=== PATIENT | male | born 1955 | race Caucasian/White ===

== ENCOUNTER 2019-04-23 19:25 | Inpatient (IN) ==
--- NOTE | 2019-04-23 20:09 | EKG Report ---
Test Performed on : 04/23/2019 7:52:47 PM Test Reason : weakness Blood Pressure : / mmHG Vent. Rate : 092 BPM Atrial Rate : 092 BPM P-R Int : 152 ms QRS Dur : 152 ms QT Int : 400 ms P-R-T Axes : 025 -03 -05 degrees QTc Int : 494 ms Normal sinus rhythm. Right bundle branch block Moderate voltage criteria for LVH, may be normal variant Abnormal ECG No previous ECGs available Unconfirmed Result
[2019-04-23] MEDS ORDERED: NS 1,000 ML IV ONE (20:28)
--- NOTE | 2019-04-23 21:00 | Diag Imaging Result Doc PS360 ---
EXAM: CHEST-PORTABLE 04/23/2019 HISTORY: cough TECHNIQUE: AP portable upright at 2043 COMMENT: There are patchy coarse opacities bilaterally particularly on the left. The heart size is not enlarged. There are no previous studies. IMPRESSION: Bronchopneumonia. Electronically signed by Gordy Mcallister 04/23/2019 8:58 PM
[2019-04-23 21:08] LABS: BASO# 0.01 X1000 (0.0-0.2); BASO% 0.1 % (0.0-0.8); EOS# 0.08 X1000 (0.0-0.7); EOS% 1.1 % (0.0-10.0); HEMATOCRIT 42.2 % (42.0-52.0); HEMOGLOBIN 14.3 g/dL (14.0-18.0); IMM GRAN# 0.03 X1000 (0.0-0.04); IMM GRAN% 0.4 % (0.0-0.5); LYMPH# 0.71 X1000 (1.2-3.4); LYMPH% 9.6 % (20.5-51.1); MCH 29.4 PG (27-31); MCHC 33.9 g/dL (33-37); MCV 86.8 FL (81-99); MONO# 0.55 X1000 (0.11-0.59); MONO% 7.5 % (1.7-9.3); MPV 10.6 FL (7.4-10.4); NEUT# 5.99 X1000 (1.4-6.5); NEUT% 81.3 % (42.2-75.2); PLT 275 X1000 (130-400); RBC 4.86 XMIL (4.7-6.1); RDW 13.5 % (11.5-14.5); WBC 7.37 X1000 (4.8-10.8)
--- NOTE | 2019-04-23 21:20 | Diag Imaging Result Doc PS360 ---
EXAM: CT HEAD W/O CONTRAST 04/23/2019 HISTORY: ataxia TECHNIQUE: This exam was performed using automated exposure control, adjustment of mA or kV according to patient size, and/or use of iterative reconstruction technique. COMMENT: There are lacunae in the inferior basal ganglia bilaterally. There is no evidence of mass effect, bleed, or abnormal extra-axial fluid collection. There is a small lacune in the periventricular white matter of the right posterior frontal lobe. The calvarium is intact. The visualized paranasal sinuses are clear. There is debris in the left external auditory canal. There is hypoplasia of the mastoid air cells bilaterally. IMPRESSION: Chronic ischemic microvascular changes. No evidence of acute intracranial disease. Electronically signed by Gordy Mcallister 04/23/2019 9:18 PM
[2019-04-23 22:03] LABS: AGAP 15; ALKALINE PHOSPHATASE 80 U/L (32-122); BUN 26 mg/dL (8-22); CALCIUM 8.5 mg/dL (8.8-10.2); CHLORIDE 97 mmol/L (98-107); CK PROFILE 159 U/L (24-204); COSMO 275; CREATININE 1.2 mg/dL (0.7-1.2); ESTIMATED GFR > 60; GLUCOSE 141 mg/dL (70-104); GOT 135 U/L (10-34); GPT 157 U/L (10-44); POTASSIUM 4.5 mmol/L (3.5-5.1); SODIUM 134 mmol/L (136-145); TCO2 22 mmol/L (25-35); TOTAL BILIRUBIN 1.21 mg/dL (0.20-1.00)
[2019-04-23] MEDS ORDERED: LEVAQUIN 750 MG/D5W 750 MG/150 ML IVPB IV ONE (22:19)
--- NOTE | 2019-04-23 23:31 | PROVIDER DOCUMENTATION ---
This chart was entered by Darlin Nguyen Scribe, acting as scribe for Isaak Wang MD. HPI-General Adult - General Chief Complaint: General Adult Stated Complaint: GENERAL EIVI-VEXVMOFA-PTS EATING/DRINKING Time Seen by Provider: 04/23/19 20:06 Source: patient, family Allergies/Adverse Reactions: Patient Allergies Allergy/AdvReac Type Severity Reaction Status Date / Time No Known Allergies Allergy Verified 04/23/19 23:32 Home Medications: Home Medication List Medication Instructions Recorded Confirmed Last Taken Type Permethrin 5% Cream [Elimite 5% 60 gm TOP ONCE #4 tube 05/09/14 Unknown Rx Cream] ATORVAstatin [Lipitor] 40 mg PO QHS 04/23/19 04/23/19 Unknown History Aspirin [Aspir-Low] 81 mg PO DAILY 04/23/19 04/23/19 Unknown History Clopidogrel Bisulfate [Clopidogrel] 75 mg PO DAILY 04/23/19 04/23/19 Unknown History Levofloxacin [Levaquin] 750 mg PO DAILY #6 tab 04/23/19 Unknown Rx Lisinopril 10 mg PO DAILY 04/23/19 04/23/19 Unknown History Metoprolol Tartrate 12.5 mg PO DAILY 04/23/19 04/23/19 Unknown History Nitroglycerin Sl [Nitroglycerin] 0.4 mg SUBLINGUAL PRN PRN 04/23/19 04/23/19 Unknown History - History of Present Illness -Gen Adult Nature of Presenting Problems: Pt is a 64 yom who presents to the ED with a cc of generalized weakness/staggering and cough. Pt family states that he pt has not been following daily routine. reports fatigue loss of appetite and r arm pain and decrease in motor skills. reports headache but denies blurry vision or tingling in extremities. denies any other complaints. Location of Pain/Injury: reports: chest (weakness, staggering), generalized Pain Radiation: reports: no radiation Quality of Pain: reports: dull Severity: reports: mild Onset/Duration: reports: unsure (few weeks?) Timing: reports: still present Context/Activities at Onset: reports: none Modifying Factors: improves with: coughing (worsens), movement (worsens) Associated Symptoms: reports: chest pain (tenderness), cough, fatigue, loss of appetite, weakness Similar Symptoms Previously?: No Recently seen or treated by another doctor?: No Review of Systems - Adult - REVIEW OF SYSTEMS - ADULT Constitutional: reports: see HPI, fatique Eyes: reports: no symptoms reported Ears, Nose, Mouth & Throat: reports: no symptoms reported Cardiovascular: reports: see HPI, chest pain (tenderness) Respiratory: reports: see HPI, cough Gastrointestinal: reports: see HPI, poor appetite Genitourinary: reports: no symptoms reported Musculoskeletal: reports: see HPI, back pain (R arm pain) Integumentary: reports: no symptoms reported Neurological: reports: see HPI, headache/migraines, other (weakness, staggering) Psychiatric: reports: no symptoms reported Endocrine: reports: no symptoms reported Hematologic/Lymphatic: reports: no symptoms reported Allergic/Immunologic: reports: no symptoms reported All Other Systems: Reviewed and Negative Past History - Adult - PAST MEDICAL HISTORY-ADULT Review of Records: reports: Old Records Reviewed, Nursing Assessment Review, Medications Reviewed, Social history reviewed & non-contributory. Major Childhood Illnesses: reports: denies history Cardiovascular: reports: [place], other (cardiac stents) Respiratory: reports: denies history Gastrointestinal: reports: denies history Obstetrical/Gynecological: reports: denies history Genitourinary: reports: denies history Musculoskeletal: reports: denies history Neurological: reports: denies history Endocrine/Immune: reports: denies history Other Conditions: reports: denies history - PRIOR SURGERIES/PROCEDURES Surgical/Procedure History: reports: none Physical Exam-General - PHYSICAL EXAM-ADULT Initial Vital Signs Reviewed: Yes - CONSTITUTIONAL General Appearance: alert, no apparent distress - EYES Eyes: pink conjunctivae - HEAD, EARS, NOSE, MOUTH & THROAT HENMT: normocephalic/atraumatic. negative: moist mucous membranes (dry) - NECK Neck: non-tender, full range of motion, normal inspection - RESPIRATORY Respiratory: lungs clear, normal breath sounds. negative: chest non-tender - CARDIOVASCULAR Cardiovascular: normal peripheral pulses, regular rate, rhythm - GASTROINTESTINAL (ABDOMEN) Abdominal Exam: normal bowel sounds, non tender, soft - MUSCULOSKELETAL Back Exam: normal inspection Extremity: normal range of motion, non-tender, normal inspection - SKIN Integumentary: normal color, normal turgor, warm/dry - NEUROLOGIC Neurologic: grossly normal - PSYCHIATRIC Psych/Mental Status: normal mood/affect, normal thought content, normal thought process, oriented x 3 Progress - PLAN OF CARE/RESULTS Progress/Plan/Lab Results: Vital Signs - 8 hr 04/23/19 19:41 04/23/19 21:03 Temperature 97.6 F Pulse Rate 102 H Pulse Rate [Sitting] 100 H Pulse Rate [Standing] 109 H Pulse Rate [Supine] 86 Respiratory Rate 18 Blood Pressure 82/54 Blood Pressure [Sitting] 114/68 Blood Pressure [Standing] 88/56 Blood Pressure [Supine] 104/61 O2 Sat by Pulse Oximetry 83 L Laboratory Results - last 24 hr 04/23/19 04/23/19 04/23/19 20:14 20:55 20:55 WBC 7.37 RBC 4.86 Hgb 14.3 Hct 42.2 MCV 86.8 MCH 29.4 MCHC 33.9 RDW Std Deviation 13.5 Plt Count 275 MPV 10.6 H Immature Gran % (Auto) 0.4 Neut % (Auto) 81.3 H Lymph % (Auto) 9.6 L [place] % (Auto) 7.5 Eos % (Auto) 1.1 Baso % (Auto) 0.1 Immature Gran # (Auto) 0.03 Neut # (Auto) 5.99 Lymph # (Auto) 0.71 L [place] # (Auto) 0.55 Eos # (Auto) 0.08 Baso # (Auto) 0.01 POC Glucose 127 H Plasma Lactate 1.5 Orders Category Date Time Status ED: Orthostatic Vital Signs (E DIRECTED Care 04/23/19 20:33 Active CHEST-PORTABLE [RAD] Stat Exams 04/23/19 20:[address] HEAD W/O CONTRAST [CT] Stat Exams 04/23/19 20:33 Completed CBC WITH DIFF [HEME] Stat Lab 04/23/19 20:55 Completed CK PROFILE [SP CHEM] Stat Lab 04/23/19 20:55 Received COMPREHENSIVE METABOLIC PANEL [CHEM] Stat Lab 04/23/19 20:55 Received LACTATE, PLASMA [CHEM] Stat Lab 04/23/19 20:55 Completed PRO B-NATRIURETIC PEPTIDE Stat Lab 04/23/19 20:55 Received TROPONIN T HIGH SENSITIVITY Stat Lab 04/23/19 20:55 Received UA NIMS W/REFLEX CULT [URINALYSIS] Stat Lab 04/23/19 20:33 Uncollected 0.9% Sodium Chloride Inj [Ns] 1,000 ml Med 04/23/19 20:28 Discontinued IV 999 mls/hr EKG [EKG] Stat Ther 04/23/19 19:47 Draft Result Diagrams: 04/23/19 20:55 04/23/19 20:55 - REASSESSMENT Reassessment #1 Time Reassessed: 22:15 Status: other (stable. impression d/w pt. will d/c home after IV abxs.) Reassessment #2 Time Reassessed: 00:13 Status: worsening (Pt dropping O2 are dropping to 84 with RR of 34, will start on O2 2L and continue IVF's. Orthostatic BP improved.) - EKG 1 Time of EKG reading by physician:: 19:52 EKG Read and Signed by:: Isaak Wang EKG Interpretation (*Must complete 3 of following elements*): Abnormal Rate: 92 Rhythm: NSR [place]: normal QRS: LVH (moderate voltage criteria for LVH) UT Interval: normal ST Wave: normal Prior EKG Comparison: no prior EKG - XRAY 1 XRAY: Bilateral XRAY Study: Chest Impression: Abnormal, See EMR Report ( EXAM: CHEST-PORTABLE 04/23/2019 HISTORY: cough TECHNIQUE: AP portable upright at 2043 COMMENT: There are patchy coarse opacities bilaterally particularly on the left. The heart size is not enlarged. There are no previous studies. IMPRESSION: Bronchopneumonia. Electronically signed by Gordy Mcallister 04/23/2019 8:58 PM 04/23/192057 Interpreting Physician: Gordy Mcallister MD Dictated Date/Time: 04/23/192056 cc: Isaak Wang MD; None,PCP) - CT/MRI 1 CT Study: Head Impression: Normal, See EMR Report (EXAM: CT HEAD W/O CONTRAST 04/23/2019 HISTORY: ataxia TECHNIQUE: This exam was performed using automated exposure control, adjustment of mA or kV according to patient size, and/or use of iterative reconstruction technique. COMMENT: There are lacunae in the inferior basal ganglia bilaterally. There is no evidence of mass effect, bleed, or abnormal extra-axial fluid collection. There is a small lacune in the periventricular white matter of the right posterior frontal lobe. The calvarium is intact. The visualized paranasal sinuses are clear. There is debris in the left external auditory canal. There is hypoplasia of the mastoid air cells bilaterally. IMPRESSION: Chronic ischemic microvascular changes. No evidence of acute intracranial disease. Electronically signed by Gordy Mcallister 04/23/2019 9:18 PM 04/23/192117 Interpreting Physician: Gordy Mcallister MD Dictated Date/Time: 04/23/192115 cc: Isaak Wang MD; None,PCP) Departure - Departure Date of Disposition Decision: 04/23/19 Time of Disposition Decision: 22:28 DIAGNOSIS: Bronchopneumonia Disposition: ADMITTED INPATIENT 09 Certified Medical Emergency: Emergent Condition: Stable Additional Instructions: ED Follow Up Instructions: Please ensure hydration. Please follow with your doctor in 2-3 days or earlier if needed. You have been treated by a care provider in the Emergency Department. These instructions are being provided to you so you can have an understanding of how to care for yourself upon discharge. Upon discharge from the Emergency Department, you are responsible for making arrangements for follow-up care by a physician of your choice. Take all prescribed medications as directed. Return to the Emergency Department immediately for any new or worsening symptoms. You may call the Physician Referral phone number at [phone] to obtain a list of Physicians who are taking new patients. Prescriptions: Levofloxacin [Levaquin] 750 mg PO DAILY #6 tab Referrals and Follow-Ups: None,PCP [Primary Care Provider] - - Critical Care Note This patient required my direct & personal management of CC.: No Attestation - Physician/ [place] Attestation Patient care was provided by Advanced Practice Provider:: No The physician spent face to face time with patient:: Yes Advanced Practice Provider documentation review:: Supervising physician onsite and consulted in the evaluation and care of this patient. The physician did have a face to face encounter with the patient. This chart was documented by the indicated scribe, (Darlin Nguyen Scribe) and accurately reflects the services I performed and decisions made by me, Isaak Wang MD, as attested by the provider's signature.
[2019-04-24] MEDS ORDERED: DUONEB (A & A) INH ONE (02:58)
[2019-04-24] MEDS ORDERED: DUONEB (A & A) INH PRN (02:59)
[2019-04-24] MEDS ORDERED: TYLENOL PO PRN (02:59)
[2019-04-24] MEDS ORDERED: ZOFRAN IV PRN (02:59)
[2019-04-24] MEDS ORDERED: NS 1,000 ML IV SCH (03:00)
[2019-04-24] MEDS: ZOSYN 3.375 GM in NS 50 ML IV SCH ×4 (04:25→20:26)
--- NOTE | 2019-04-24 08:06 | Diag Imaging Result Doc PS360 ---
EXAM: CT ANGIOGRM PULMONARY ARTERIES INDICATION: desaturation TECHNIQUE: This exam was performed using automated exposure control, adjustment of mA or kV according to patient size, and/or use of iterative reconstruction technique. Thin section axial images and 3-D MIPS were obtained. COMPARISON: None. FINDINGS: There is excessive respiratory motion artifact, which can limit sensitivity for detecting small pulmonary emboli, especially at the lower lung zones. However, there is no definite filling defect to indicate pulmonary embolism. There is no evidence of aortic dissection or aneurysm. There is no cardiomegaly. There are a few calcified mediastinal and hilar lymph nodes indicating prior granulomatous disease. There is no evidence of significant spinal or hilar lymphadenopathy, otherwise. There is extensive patchy airspace consolidations seen throughout both lungs sparing the right middle lobe and most of the lingula as well as most of the lung apices. Consider infectious pneumonia or cryptogenic organizing pneumonia. There is no pleural fluid collection and no pneumothorax. Limited views of the upper abdomen reveals moderate hepatic steatosis. IMPRESSION: 1.Somewhat limited due to respiratory motion artifact but no evidence of pulmonary embolism as imaged. 2.Extensive patchy groundglass airspace infiltrates bilaterally. Consider cryptogenic organizing pneumonia or infectious pneumonia. Electronically signed by Kamlesh Mireles 04/24/2019 8:04 AM
--- NOTE | 2019-04-24 08:13 | HISTORY AND PHYSICAL ---
PRIMARY CARE PHYSICIAN: Dr. Swathi Gruber. CHIEF COMPLAINT: Cough, shortness of breath, abdominal discomfort times several days. HISTORY OF PRESENTING ILLNESS: A 64-year-old male with a history of coronary artery disease, hypertension, hyperlipidemia, who presented to the emergency department with several days history of having cough, shortness of breath and abdominal discomfort. The patient states that he was coughing more and was having difficulty breathing. Subsequently, he had come to the emergency department. In the ED he was evaluated. He had imaging done which did show bilateral infiltrates consistent with pneumonia. Subsequently, he will require admission for further management. At the time of my examination, patient denied any headache, fever, chills, chest pain, hemoptysis, or any weight changes, but complained of shortness of breath, cough and abdominal pain. PAST MEDICAL HISTORY: Includes COPD, hypertension, hyperlipidemia. PAST SURGICAL HISTORY: Coronary stent. ALLERGIES: No known drug allergies. CURRENT MEDICATIONS: Include atorvastatin 40 mg p.o. at bedtime, Plavix 75 mg p.o. daily, lisinopril 10 mg p.o. daily, metoprolol 12.5 mg p.o. daily. SOCIAL HISTORY: He is a former smoker. No history of alcohol or illicit drug use. FAMILY HISTORY: Positive for coronary disease in father. REVIEW OF SYSTEMS: Fourteen point review of systems is as in HPI. Other systems negative physical. PHYSICAL EXAMINATION: GENERAL: Cooperative, friendly male. He is resting more comfortably now. VITAL SIGNS: Temperature 97.6 degrees, pulse 102, respiration 18, blood pressure initially was 82/54, repeat was 105/72. HEENT: Atraumatic, normocephalic. Extraocular movements intact. PERRLA. NECK: No masses. CHEST: Rhonchi. CARDIOVASCULAR: Regular rate and rhythm. ABDOMEN: Soft. Positive bowel sounds. EXTREMITIES: No edema. NEUROLOGIC: He is awake, alert, oriented x3. : No bladder distention. SKIN: Warm. LABORATORIES AND STUDIES: Sodium 134, potassium 4.5, chloride 97, CO2 22, BUN is 26, creatinine is 1.2, glucose 141, AST 135, ALT 157, alkaline phosphatase 80. WBC 7.37, hemoglobin 14.3, hematocrit 42.2, platelets 275,000. ASSESSMENT: A 64-year-old male with a history of coronary disease, hypertension, and hyperlipidemia who presented to emergency department with several days history of having cough, shortness of breath and not feeling well. He was evaluated in the emergency department and he had imaging done which did show bilateral infiltrates consistent with pneumonia. Subsequently, he will need admission for further management. ASSESSMENT: 1. Pneumonia. 2. Coronary artery disease. 3. Hypertension. 4. Abnormal liver function tests. PLAN: 1. We will admit patient to medical floor with telemetry. 2. We will check blood cultures. Start patient on IV antibiotics. 3. Monitor blood pressure closely. 4. Will check abdominal ultrasound. 5. Put patient on DVT prophylaxis with Lovenox. 6. Will continue to follow, reassess, make further recommendations based on patient's clinical course. cc: Brandon Armstrong MD
[2019-04-24] MEDS: ASPIRIN EC PO SCH (09:31)
[2019-04-24] MEDS: PLAVIX PO SCH (09:32)
[2019-04-24] MEDS: LOPRESSOR PO SCH (09:32)
[2019-04-24] MEDS: PRINIVIL PO SCH (09:33)
[2019-04-24] MEDS ORDERED: LASIX IV ONE (11:30)
[2019-04-24] MEDS: ZITHROMAX PO SCH (12:18)
[2019-04-24 12:49] LABS: URINE SOURCE CATH
[2019-04-24 12:55] LABS: BILIRUBIN URINE NEGATIVE (NEGATIVE); BLOOD URINE NEGATIVE (NEGATIVE); COLOR YELLOW; GLUCOSE URINE NEGATIVE (NEGATIVE); KETONE URINE 10 mg/dL (NEGATIVE); LEUKOCYTES URINE NEGATIVE (NEGATIVE); NITRITE URINE NEGATIVE (NEGATIVE); PROTEIN URINE 50 mg/dL (NEGATIVE); TURBIDITY URINE CLEAR (CLEAR); UROBILINOGEN URINE NORMAL (NORMAL)
[2019-04-24 12:57] LABS: UR EPITHELIAL CELLS <10 /HPF (<10); URINE BACTERIA NEGATIVE /HPF; URINE RBC <10 /HPF (<10); URINE WBC <10 /HPF (<10)
--- NOTE | 2019-04-24 14:25 | PROGRESS NOTE ---
DATE: 04/24/2019 INTERVAL HISTORY: Mr. Ca was admitted overnight for shortness of breath, cough, and abdominal discomfort of about a couple of weeks duration. His CT scan of the chest was remarkable for bilateral lung infiltrate without any leukocytosis. He did not have any fever and his cough was nonproductive. In the morning time he was hypoxic and was started on high-flow nasal cannula. SUBJECTIVE: At the time of my evaluation, he appears slightly more comfortable, though on movement he does become more short of breath. VITALS: Currently temperature of 97.8 degrees, pulse 76, respiratory rate 28, blood pressure 123/80. He is saturating 98% on 45% high-flow nasal cannula. PHYSICAL EXAMINATION: Not in acute distress.HEENT: Oral cavity is moist. Lungs: Air entry diminished bilateral infrascapular region with inspiratory crackles. Cardiovascular: S1, S2 normal. No murmur, rub, or gallop. Abdomen: Soft, nontender. Active bowel sounds. He does not have any lower extremity edema. He appears alert and oriented x3. His is at bedside. LABS: Suggestive of WBC of 7.3, hemoglobin 14.3. His platelet is 275,000. He does have normal kidney function, but hyperbilirubinemia with a total bilirubin of 1.21. ASSESSMENT AND PLAN: 1. Acute hypoxic respiratory failure due to bilateral lung infiltrate, likely due to community- acquired atypical pneumonia. Continue intravenous Zosyn. Add oral azithromycin. Follow up urine Streptococcus and Legionella antigen. Continue high-flow nasal cannula to maintain oxygenation more than 92% and I will transfer patient to PVC unit. 2. History of coronary artery disease. He currently denies any chest discomfort on my evaluation. His troponin T was unremarkable. His last stent was in 2016. I will continue his home aspirin, clopidogrel, atorvastatin, metoprolol and lisinopril and follow up with [facility]. 3. Sepsis due to bilateral lower lobe pneumonia. On presentation he was hypotensive. Currently, he is normotensive. I will continue antibiotic management as mentioned above. 4. History of traumatic brain injury likely responsible for an encephalomalacia on the CT scan. 5. Hyponatremia, hypochloremia and abnormal liver function test with transaminitis. Follow up ultrasound right upper quadrant to rule out any cholelithiasis. He does not have abdominal tenderness to suggest acute cholecystitis. 6. Others: I will give him intravenous Lasix to rule out any acute pulmonary edema. We will keep Turcios catheter for input and output monitoring. He denies known history of atrial fibrillation. I will stop intravenous fluids and transfer patient to [facility]. Plan of care extensively discussed with the patient and his at bedside. Their questions have been answered. cc: Jeremi Manning MD
--- NOTE | 2019-04-24 16:54 | Diag Imaging Result Doc PS360 ---
EXAM: US ABDOMEN-COMPLETE INDICATION: Abnormal LFT COMPARISON: None. FINDINGS: There appears to be a small amount of echogenic sludge layering in the gallbladder lumen. No shadowing stones are identified. There is no evidence of gallbladder wall thickening or pericholecystic fluid. The common bile duct is normal in diameter. Sonographic Braden's sign was reported to be negative. The echotexture of the liver is slightly increased on several images suggesting mild hepatic steatosis. Portal venous flow is hepatopetal. The visualized pancreas is unremarkable. The visualized portions of the aorta and IVC are grossly unremarkable. The spleen is unremarkable. The left renal collecting system appears slightly prominent as compared to the right. This is of unknown acuity. It may be chronic. IMPRESSION: 1.Echogenic sludge in the gallbladder lumen. No gallstones or definite gallbladder wall thickening. 2.Suggestion of minimal hepatic steatosis. 3.Slightly prominent left renal collecting system as compared to the right, which is of unknown acuity. Please correlate clinically. Electronically signed by Kamlesh Mireles 04/24/2019 4:52 PM
[2019-04-24] MEDS: DUONEB (A & A) INH PRN (19:39)
[2019-04-24] MEDS: LIPITOR PO SCH (20:26)
[2019-04-25] MEDS: ZOSYN 3.375 GM in NS 50 ML IV SCH ×4 (02:35→21:49)
[2019-04-25] MEDS: DUONEB (A & A) INH PRN ×4 (03:15→19:50)
[2019-04-25 07:13] LABS: BASO# 0.02 X1000 (0.0-0.2); BASO% 0.3 % (0.0-0.8); EOS# 0.25 X1000 (0.0-0.7); EOS% 3.6 % (0.0-10.0); HEMATOCRIT 40.7 % (42.0-52.0); HEMOGLOBIN 13.5 g/dL (14.0-18.0); IMM GRAN# 0.03 X1000 (0.0-0.04); IMM GRAN% 0.4 % (0.0-0.5); LYMPH# 0.85 X1000 (1.2-3.4); LYMPH% 12.2 % (20.5-51.1); MCH 29.3 PG (27-31); MCHC 33.2 g/dL (33-37); MCV 88.3 FL (81-99); MONO# 0.58 X1000 (0.11-0.59); MONO% 8.3 % (1.7-9.3); MPV 10.7 FL (7.4-10.4); NEUT# 5.23 X1000 (1.4-6.5); NEUT% 75.2 % (42.2-75.2); PLT 291 X1000 (130-400); RBC 4.61 XMIL (4.7-6.1); WBC 6.96 X1000 (4.8-10.8)
[2019-04-25 08:09] LABS: AGAP 13; BUN 15 mg/dL (8-22); CALCIUM 8.3 mg/dL (8.8-10.2); CHLORIDE 99 mmol/L (98-107); COSMO 272; ESTIMATED GFR > 60; GLUCOSE 110 mg/dL (70-104); POTASSIUM 3.4 mmol/L (3.5-5.1); SODIUM 135 mmol/L (136-145); TCO2 23 mmol/L (25-35)
[2019-04-25 08:24] LABS: ALB/GLOB RATIO 1.1; ALBUMIN 2.8 g/dL (3.5-5.0); DIRECT BILIRUBIN 0.5 mg/dL (0.00-0.20); TOTAL BILIRUBIN 1.26 mg/dL (0.20-1.00); TOTAL PROTEIN 5.3 g/dL (6.3-8.3)
[2019-04-25] MEDS: PRINIVIL PO SCH (08:46)
[2019-04-25] MEDS: ZITHROMAX PO SCH (08:47)
[2019-04-25] MEDS: ASPIRIN EC PO SCH (08:47)
[2019-04-25] MEDS: PLAVIX PO SCH (08:47)
[2019-04-25] MEDS: LOPRESSOR PO SCH (08:47)
--- NOTE | 2019-04-25 08:47 | ECHO REPORT ---
ORDER DATE: 04/24/2019 INTERPRETING PHYSICIAN: Nixon Stephen MD. INDICATIONS: Possible CHF. M-MODE MEASUREMENTS: Left ventricle end diastole: 3.7 cm. Left ventricle end systole: 2.5 cm. Posterior wall: 1.0 cm. Interventricular septum: 1.0 cm. Left atrium: 3.1 cm. Aortic diameter: 2.7 cm. SUMMARY OF 2-DIMENSIONAL IMAGIN. Left ventricular function is normal, ejection fraction estimated at 62%. There is no wall motion abnormality noted. The chamber is not dilated. 2. The right ventricle may be at the upper limits of normal. 3. The aortic valve has 3 cusps, they open normally. Color flow mapping unremarkable. 4. The mitral valve looks normal. Color flow mapping unremarkable. 5. Pulse wave Doppler of mitral inflow shows mild reversal of the E/A ratio. 6. Tissue Doppler of septal and lateral mitral annulus averages 8 cm. 7. Pulmonary venous flow is normal. 8. There is no diastolic dysfunction. 9. The pulmonic valve is unremarkable. 10.The tricuspid valve shows mild degree of regurgitation. 11.The inferior vena cava did not appear to be dilated. 12.Pulmonary pressure estimated between 23-28 mmHg. 13.Physiologic pericardial effusion appears to be present. There is no evidence of masses or thrombus. SUMMARY: This study shows: 1. Normal left ventricular systolic function. 2. Mild enlargement of right ventricle. 3. Pulmonary pressure could not properly quantified. 4. No diastolic dysfunction. 5. No evidence of any significant valvular abnormality. cc: MD Jeremi Murillo MD [facility]
[2019-04-25] MEDS: KLOR-CON PO SCH ×2 (11:44→14:36)
--- NOTE | 2019-04-25 15:14 | PROGRESS NOTE ---
DATE: 04/25/2019 INTERVAL HISTORY: He continues to require 50% to 55% high-flow nasal cannula oxygen. He was able to provide sputum sample. No other acute events. He denies any chest pain. He does feel a little short of breath. He, most of the time, has dry cough. is at bedside. OBJECTIVE: Vital Signs: Temperature 98.6 degrees, pulse 103, respiratory rate 17, blood pressure 99/68, he is saturating 93% on 55% nasal cannula. General: Does not appear in acute distress. HEENT: Oral cavity is moist. Lungs: Air entry bilaterally equal. No wheeze or rhonchi. Decreased air entry with inspiratory crackles in bilateral infrascapular region. Cardiovascular: S1, S2 normal. Tachycardic. No murmur or gallop. Abdomen: Soft, nontender. Active bowel sounds. Extremities: No lower extremity edema. He is alert and oriented x3. is at bedside. Input and output suggest -2.7 L yesterday. LABORATORY DATA: Hemoglobin of 13.5, platelets of 291,000. Potassium of 3.4, which is currently being repleted. Improvement in transaminitis with total bilirubin of 1.26 and ALT of 105. MICROBIOLOGY: No positive microbiological data so far. IMAGING: Echocardiogram had normal ejection fraction, mild enlargement of right ventricle. Abdominal ultrasound has nonspecific minimal hepatic steatosis. No gallstones or definitive gallbladder wall thickening. ASSESSMENT AND PLAN: 1. Acute hypoxic respiratory failure due to bilateral lung infiltrate. Differential includes community-acquired atypical pneumonia, viral versus bacterial etiology. He does not have hemoptysis, but considering dual antiplatelet therapy, alveolar hemorrhage is also a possibility. He does not have leukocytosis or fever. Continue intravenous Zosyn and azithromycin. Follow up urine Streptococcus and Legionella antigen. Continue high-flow nasal cannula to maintain oxygenation more than 92%. I will consult Pulmonology to see if he would need bronchoscopy for further evaluation. Sputum culture results are pending. 2. History of coronary artery disease, requiring stent in 2016. His troponin T was unremarkable. Continue home aspirin, atorvastatin, metoprolol, lisinopril. I am holding clopidogrel until further Pulmonology recommendations are made, to see if he would need bronchoscopy in the future. 3. Sepsis due to bilateral lower lobe pneumonia. He was hypotensive on presentation, now normotensive. Continue antibiotic management. 4. 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 Aware. 5. Hyponatremia, hypochloremia, hypokalemia, and transaminitis on liver function tests. Improving. I will replete his potassium. Ultrasound abdomen did not have cholecystitis. 6. Others. His oxygenation did not improve after intravenous Lasix. I will keep Turcios catheter for close input and output monitoring, and monitor him in PVC. Plan of care was discussed with the patient and his at bedside. Their questions have been satisfactorily answered. cc: Jeremi Manning MD
[2019-04-25 16:44] LABS: BLOOD TYPE ARTERIAL; SAMPLE BLOOD
[2019-04-25 16:45] LABS: ALLEN TEST YES; BE -0.2 mmoll (-3.0-3.0); HCO3-(ACT) 24.7 mmoll (20.0-26.0); METHB 1.2 % (0.0-1.5); MODALITY HIGH FLOW NASAL CAN; O2(CT) 20.1 mL/dL (15.0-23.0); O2HB 96.4 % (95.0-99.0); PCO2(98.6) 30 mmHg (35-45); PO2(98.6) 91 mmHg (60-100); SAO2 98.8 % (95.0-100.0); THB 14.8 g/dL (11.5-17.4); pH(98.6) 7.48 (7.35-7.45)
--- NOTE | 2019-04-25 19:26 | PROVIDER PROGRESS NOTE ---
Progress Note Patient has been seen and examined. A full dictation to follow.
[2019-04-25] MEDS: LIPITOR PO SCH (21:49)
--- NOTE | 2019-04-25 23:30 | PULMONOLOGY CONSULTATION ---
DATE: 04/25/2019 REQUESTING PROVIDER: Jeremi Manning MD REASON FOR CONSULTATION: Bilateral lung infiltrate. HISTORY OF PRESENT ILLNESS: This is a 64-year-old male with a medical history of COPD, hypertension, hyperlipidemia and coronary artery disease. He presented to the ER on 04/23/2019 with generalized weakness, staggering and cough for several days. Initial workup in the ER revealed bronchopneumonia and elevated liver function tests. CT angiogram pulmonary arteries on 04/24/2019 revealed extensive patchy ground-glass airspace infiltrates bilaterally, considering cryptogenic organizing pneumonia or infectious pneumonia, but no evidence of pulmonary embolism. He has been treated with azithromycin and Zosyn since admission but his respiratory status keeps declining. He had to start on high-flow nasal cannula since yesterday morning. The patient currently is lying in bed with high flow nasal cannulae at 50 L/minute, 55%. He is awake, alert, calm and cooperative with no acute distress noted. He reports occasional productive cough with some yellow-greenish thick sputum, but overall he has been feeling a lot better. He still has some shortness of breath with activities, but he has no fever, chills, chest pain, palpitation, bowel habit change, urination discomfort, hemoptysis, orthopnea, wheezing, noticeable weight change or pedal edema. PAST MEDICAL HISTORY: 1. COPD on rescue inhaler only at home. 2. Hypertension. 3. Hyperlipidemia. 4. Coronary artery disease, status post coronary stent placement. SOCIAL HISTORY: He is a former smoker and quit smoking over 35 years ago. He has no history of alcohol or illicit drug use. FAMILY HISTORY: Positive for coronary artery disease and skin cancer. ALLERGIES: No known drug allergies. REVIEW OF SYSTEMS: A 10-point review of systems was conducted and the pertinent's listed within the HPI, otherwise noncontributory. PHYSICAL EXAMINATION: Vital Signs: Temperature 97.9, blood pressure 108/73, pulse 72, respiratory rate 22, oxygen saturation 98% on a high-flow nasal cannula with oxygen flow rate 50 L/minute and oxygen flow concentration 55. General: Calm and cooperative, lying in bed with no acute distress noted. HEENT: Atraumatic, normocephalic. Trachea midline. Mucosa pink and moist. Respiratory: Even and unlabored. Symmetrical excursion. Auscultation revealed diminished breathing sounds bilaterally with some mild inspiratory crackles bibasilarly. Cardiovascular: Regular rate and rhythm with S1, S2 appreciated. Abdomen: Soft, nontender, nondistended. Normoactive bowel sounds in all 4 quadrants. Extremities: No pedal edema. No cyanosis. No clubbing. Dorsalis pedis 2+ bilaterally. Neurologic: Alert, oriented x3. Speech fluent. Follows commands. LAB DATA: White blood cells 6.96, hemoglobin 14.5, hematocrit 40.7, platelet 291,000. Sodium 145, potassium 3.4, chloride 99, carbon dioxide 23, BUN 15, creatinine 1.0. Glucose 110. IMAGING DATA: See CT pulmonary angiogram on 04/24/2019 in [facility]. ASSESSMENT: This is a 64-year-old male with a medical history of chronic obstructive pulmonary disease, hypertension, hyperlipidemia, and coronary artery disease. He has been admitted to the [facility] since 04/24/2019 with bronchopneumonia and elevated liver function tests. 1. Acute hypoxemic respiratory failure. Stay on high-flow nasal cannula since yesterday. 2. Bilateral lung infiltrates, extensive patchy ground-glass airspace infiltrates bilaterally. Consider cryptogenic organizing pneumonia or infectious pneumonia, but rule out pulmonary embolism. 3. Chronic obstructive pulmonary disease. No acute exacerbation noted at this time. PLAN: 1. We titrated supplemental oxygen as needed. 2. Antibiotics, including the Zosyn and azithromycin were ordered. 3. bronchodilators were ordered. 4. Follow up with ABG, CBC, BMP, sputum culture, blood culture and chest x-ray. 5. Further recommendations pending hospital course. Thank you for the courtesy of this consult. Dr. Neri did the examination, evaluation, management and orders. KATIE did the dictation for Dr. Neri according to his direction. Total evaluation time in minutes: 34. Dictated by KATIE Trevizo for Rajesh Neri MD cc: KATIE Trevizo MD [facility]
[2019-04-26] MEDS: ZOSYN 3.375 GM in NS 50 ML IV SCH ×4 (02:56→22:00)
[2019-04-26] MEDS: DUONEB (A & A) INH PRN (03:15)
[2019-04-26 06:57] LABS: BASO# 0.01 X1000 (0.0-0.2); BASO% 0.1 % (0.0-0.8); EOS# 0.22 X1000 (0.0-0.7); HEMATOCRIT 39.3 % (42.0-52.0); IMM GRAN# 0.03 X1000 (0.0-0.04); IMM GRAN% 0.4 % (0.0-0.5); LYMPH# 0.93 X1000 (1.2-3.4); LYMPH% 12.5 % (20.5-51.1); MCH 29.6 PG (27-31); MCHC 33.1 g/dL (33-37); MCV 89.5 FL (81-99); MONO# 0.59 X1000 (0.11-0.59); MONO% 7.9 % (1.7-9.3); MPV 10.4 FL (7.4-10.4); NEUT# 5.66 X1000 (1.4-6.5); NEUT% 76.1 % (42.2-75.2); PLT 316 X1000 (130-400); RBC 4.39 XMIL (4.7-6.1); RDW 13.8 % (11.5-14.5); WBC 7.44 X1000 (4.8-10.8)
[2019-04-26 07:20] LABS: AGAP 11; BUN 12 mg/dL (8-22); CALCIUM 8.4 mg/dL (8.8-10.2); CHLORIDE 99 mmol/L (98-107); COSMO 265; ESTIMATED GFR > 60; GLUCOSE 104 mg/dL (70-104); MAGNESIUM 1.9 mg/dL (1.5-2.7); POTASSIUM 4.6 mmol/L (3.5-5.1); SODIUM 132 mmol/L (136-145); TCO2 22 mmol/L (25-35)
[2019-04-26 07:24] LABS: ALLEN TEST YES; BE -3.9 mmoll (-3.0-3.0); BLOOD TYPE ARTERIAL; HCO3-(ACT) 21.9 mmoll (20.0-26.0); PCO2(98.6) 23 mmHg (35-45); PO2(98.6) 117 mmHg (60-100); SAMPLE BLOOD; pH(98.6) 7.49 (7.35-7.45)
[2019-04-26 07:25] LABS: MODALITY HIGH FLOW NASAL CAN
[2019-04-26] MEDS: PRINIVIL PO SCH (09:27)
[2019-04-26] MEDS: ZITHROMAX PO SCH (09:27)
[2019-04-26] MEDS: LOPRESSOR PO SCH (09:27)
[2019-04-26] MEDS: ASPIRIN EC PO SCH (09:27)
[2019-04-26] MEDS: MIRALAX PO SCH ×2 (13:28→22:04)
[2019-04-26] MEDS: LOVENOX SUBQ SCH (13:28)
--- NOTE | 2019-04-26 17:41 | PROGRESS NOTE ---
DATE: 04/26/2019 INTERVAL HISTORY: No acute events overnight. SUBJECTIVE: Mr. Ca is feeling better. Denies any new complaints. His vitals were unremarkable on 45% high-flow nasal cannula. He has not had a bowel movement. Mr. Ca denies any chest pain or shortness of breath at rest. He only occasionally has a cough. His is at bedside. OBJECTIVE: Vital signs: Temperature 98.5 degrees, pulse 79, respiratory rate 25, blood pressure 109/60, saturating 99% on high-flow nasal cannula. On physical examination, not in acute distress. Oral cavity is moist. He has decreased air entry with inspiratory crackles in infrascapular region. S1, S2 normal, not tachycardic. No murmur or gallop. Abdomen is soft, nontender. Active bowel sounds. No lower extremity edema. He has a Turcios catheter. Input and output suggest -800 mL yesterday. LABORATORY DATA: Labs suggestive of hemoglobin of 13, WBC of 7000, pO2 of 117. BUN suggestive of 12, creatinine 0.1, magnesium of 1.9. Microbiology: No positive data. Imaging: Echocardiogram had no diastolic dysfunction and normal left ventricular systolic function. ASSESSMENT AND PLAN: 1. Acute hypoxic respiratory failure related to bilateral lung infiltrate. Differential includes community-acquired pneumonia of viral versus bacterial etiology. He was on dual antiplatelet therapy but denies any hemoptysis. He did not have any leukocytosis or fever. Continue intravenous Zosyn and azithromycin. Continue high-flow nasal cannula to maintain oxygen saturation more than 92%. Appreciate Pulmonology recommendations. Culture data so far have been unremarkable. 2. History of coronary artery disease, status post stent in 2016. Continue home aspirin, atorvastatin, metoprolol and lisinopril, and continue to hold Plavix. 3. His sepsis on presentation has resolved; he has history of traumatic brain injury leading to encephalomalacia on CT scan; his electrolyte abnormalities including hyponatremia, hypochloremia, hypokalemia have been improving. His transaminitis was improving as well. 4. Disposition: Continue to monitor patient in [facility] for the need for high-flow nasal cannula. I will discontinue the Turcios catheter. We will give him MiraLAX for constipation and would increase activity to out of bed. I will also add enoxaparin for deep venous thrombosis prophylaxis. Plan of care discussed with the patient as well as his at bedside. Their questions have been answered. cc: Jeremi Manning MD
--- NOTE | 2019-04-26 22:00 | PULMONOLOGY PROGRESS NOTE ---
DATE: 04/26/2019 SUBJECTIVE: The patient is awake, alert, and conversant and sitting in the bedside chair. He has a slightly productive cough. OBJECTIVE: Vital Signs: The patient has been afebrile for the last 24 hours, blood pressure 109/60, heart rate 79, respiratory rate 25, oxygen saturation 99% on high-flow O2. HEENT: Pupils are equal and reactive. Oropharynx appears clear. Neck: Supple. Chest: Reveals crackles bilaterally. Cardiac exam: S1, S2. Abdomen: Soft. Extremities: Reveal trace edema. LABORATORY DATA: White blood cell count 7.44, hemoglobin 13.0, platelet count 316,000. Legionella and streptococcal antigens are negative. IMPRESSION: A 64-year-old with history of brain injury, bilateral community-acquired pneumonia, acute hypoxemic respiratory failure. PLAN: 1. Continue current treatment regimen. 2. Follow up chest x-ray tomorrow. 3. Anticipate followup CT scan early next week. cc: Nathaniel Roldan MD
[2019-04-26] MEDS: LIPITOR PO SCH (22:04)
[2019-04-27] MEDS: ZOSYN 3.375 GM in NS 50 ML IV SCH ×4 (04:08→21:12)
[2019-04-27 05:16] LABS: ALLEN TEST YES; BE -1.7 mmoll (-3.0-3.0); BLOOD TYPE ARTERIAL; HCO3-(ACT) 23.5 mmoll (20.0-26.0); O2(CT) 17.1 mL/dL (15.0-23.0); O2HB 94.9 % (95.0-99.0); PCO2(98.6) 33 mmHg (35-45); PO2(98.6) 76 mmHg (60-100); SAMPLE BLOOD; SAO2 97.4 % (95.0-100.0); THB 12.8 g/dL (11.5-17.4); pH(98.6) 7.43 (7.35-7.45)
[2019-04-27 05:17] LABS: MODALITY HIGH FLOW NASAL CAN
[2019-04-27 06:19] LABS: AGAP 12; BUN 12 mg/dL (8-22); CALCIUM 8.6 mg/dL (8.8-10.2); CHLORIDE 100 mmol/L (98-107); COSMO 269; CREATININE 0.9 mg/dL (0.7-1.2); ESTIMATED GFR > 60; GLUCOSE 110 mg/dL (70-104); POTASSIUM 4.3 mmol/L (3.5-5.1); SODIUM 134 mmol/L (136-145); TCO2 22 mmol/L (25-35)
--- NOTE | 2019-04-27 07:33 | Diag Imaging Result Doc PS360 ---
EXAM: CHEST-PORTABLE HISTORY: abnormal exam TECHNIQUE: Single view COMPARISON: 04/23/2019 FINDINGS: Poor inspiratory effort. No cardiomegaly. There are bilateral infiltrates. These are slightly more prominent on the current study. No pleural effusions identified. IMPRESSION: Worsening bilateral infiltrates Electronically signed by Meek De Los Santos 04/27/2019 7:31 AM
[2019-04-27] MEDS: MIRALAX PO SCH ×2 (08:47→21:12)
[2019-04-27] MEDS: DULCOLAX PR SCH ×3 (08:47→21:12)
[2019-04-27] MEDS: LOPRESSOR PO SCH (08:48)
[2019-04-27] MEDS: ZITHROMAX PO SCH (08:48)
[2019-04-27] MEDS: ASPIRIN EC PO SCH (08:48)
[2019-04-27] MEDS: PRINIVIL PO SCH (08:49)
--- NOTE | 2019-04-27 10:14 | PROGRESS NOTE ---
DATE: 04/27/2019 INTERVAL HISTORY: No acute events overnight. He continues to require 50% high-flow nasal cannula. Chest x-ray has not improved. His is currently at bedside. Mr. Ca denies any chest pain. He does get short of breath when he does perform physical activity. He has been able to make a good amount of urine after removing the Turcios catheter. He has occasional cough which is mostly dry. VITALS: Temperature 98.6 degrees, pulse 97, respiratory 18, blood pressure 99/73. Saturating 95% on 50% high-flow nasal cannula. PHYSICAL EXAMINATION: He is not in acute distress. HEENT: Oral cavity is moist. Lungs: Air entry bilaterally equal. No wheeze or rhonchi inspiratory crackles infrascapular region. Cardiovascular: S1, S2 normal. Slightly tachycardic with heart rate of 110. Currently, no murmur, rub, or gallop. Abdomen: Soft, nontender. Active bowel sounds. Extremity: No lower extremity edema. [employer]ER: He is alert and oriented x3. Input and Output: Suggests he ate 50% of his meals. He had his urine output is currently not charted. Yesterday it was 900 mL. LABS: Suggestive of PO2 of 76 on 50% oxygenation. BUN of 12, creatinine of 0.9, sodium of 134. No positive microbiological data. Chest x-ray suggests persistent bilateral infiltrates which look worse. ASSESSMENT AND PLAN: 1. Acute hypoxic respiratory failure due to bilateral lung infiltrate. Differential includes community-acquired pneumonia of viral versus bacterial etiology versus other. Continue intravenous Zosyn and azithromycin, oxygenation through high-flow nasal cannula. Appreciate Pulmonology recommendation. 2. History of coronary artery disease status post stent in 2016. Continue home aspirin, atorvastatin, metoprolol and lisinopril and continue to hold Plavix. 3. History of traumatic brain injury leading to encephalomalacia seen on CT scan; sepsis on presentation, currently stable. His transaminitis and electrolyte abnormalities have been improving as well. DISPOSITION: I will add stool softeners for constipation and order physical therapy as well. Continue enoxaparin for DVT prophylaxis. Unfortunately Mr. Ca's lung infiltrate has not improved and he is he continues to require 50% oxygen. I will continue to monitor patient in PVC. Plan of care discussed with Mr. Colby and his at bedside. Their questions have been answered. cc: Jeremi Manning MD
[2019-04-27] MEDS: LOVENOX SUBQ SCH (15:40)
--- NOTE | 2019-04-27 18:30 | PULMONOLOGY PROGRESS NOTE ---
DATE: 04/27/2019 SUBJECTIVE: The patient is awake and alert. He has a dry cough. He is without new complaints. OBJECTIVE: The patient has been afebrile for the last 24 hours. Blood pressure 96/63, heart rate 96, respiratory rate 16, oxygen saturation 98%. HEENT: Pupils are equal and reactive. Oropharynx appears clear. Neck: Supple. Chest: Faint crackles bilaterally. Cardiac: S1, S2. Abdomen: Soft. Extremities: Without edema. LABORATORY AND DIAGNOSTIC DATA: Chest x-ray 04/27/2019, was reviewed and appears worse than the initial chest x-ray on 04/23/2019, but does not look significantly different than his translation director film performed for his CT scan on the day after admission. White blood count 7.44, hemoglobin 13.0, platelet count 316,000. Sodium 134, potassium 4.3, chloride 100, bicarbonate 22, BUN 12, creatinine 0.9. Microbiology reveals no new data. IMPRESSION: A 64-year-old with: 1. Bilateral community-acquired pneumonia. 2. Acute hypoxemic respiratory failure. 3. Remote history of brain injury. 4. No radiographic improvement. PLAN: 1. Continue current treatment regimen. 2. Continue oxygen for hypoxemic respiratory failure. 3. Anticipate CT scan Monday or Monday of next week. If he is not having clinical improvement, bronchoscopy may be considered. cc: Nathaniel Roldan MD
[2019-04-27] MEDS: LIPITOR PO SCH (21:12)
[2019-04-28] MEDS: ZOSYN 3.375 GM in NS 50 ML IV SCH ×5 (03:28→21:25)
[2019-04-28 05:10] LABS: ALLEN TEST YES; BE -1.1 mmoll (-3.0-3.0); BLOOD TYPE ARTERIAL; HCO3-(ACT) 24.1 mmoll (20.0-26.0); METHB 0.4 % (0.0-1.5); O2(CT) 16.9 mL/dL (15.0-23.0); O2HB 98.3 % (95.0-99.0); PCO2(98.6) 26 mmHg (35-45); PO2(98.6) 170 mmHg (60-100); SAMPLE BLOOD; SAO2 100.9 % (95.0-100.0); pH(98.6) 7.51 (7.35-7.45)
[2019-04-28 05:11] LABS: MODALITY HIGH FLOW NASAL CAN
[2019-04-28 06:47] LABS: BASO# 0.02 X1000 (0.0-0.2); BASO% 0.3 % (0.0-0.8); EOS# 0.23 X1000 (0.0-0.7); EOS% 3.1 % (0.0-10.0); HEMATOCRIT 36.7 % (42.0-52.0); HEMOGLOBIN 11.8 g/dL (14.0-18.0); IMM GRAN# 0.07 X1000 (0.0-0.04); IMM GRAN% 0.9 % (0.0-0.5); LYMPH# 1.12 X1000 (1.2-3.4); MCH 29.4 PG (27-31); MCHC 32.2 g/dL (33-37); MCV 91.3 FL (81-99); MONO% 13.4 % (1.7-9.3); MPV 10.5 FL (7.4-10.4); NEUT# 5.04 X1000 (1.4-6.5); NEUT% 67.3 % (42.2-75.2); PLT 315 X1000 (130-400); RBC 4.02 XMIL (4.7-6.1); RDW 13.7 % (11.5-14.5); WBC 7.48 X1000 (4.8-10.8)
[2019-04-28 07:15] LABS: AGAP 12; BUN 8 mg/dL (8-22); CALCIUM 8.6 mg/dL (8.8-10.2); CHLORIDE 98 mmol/L (98-107); COSMO 266; CREATININE 0.9 mg/dL (0.7-1.2); ESTIMATED GFR > 60; GLUCOSE 113 mg/dL (70-104); POTASSIUM 4.2 mmol/L (3.5-5.1); SODIUM 133 mmol/L (136-145); TCO2 23 mmol/L (25-35)
[2019-04-28] MEDS: DUONEB (A & A) INH PRN ×2 (08:14→16:32)
[2019-04-28] MEDS: MIRALAX PO SCH ×3 (08:39→21:26)
[2019-04-28] MEDS: PRINIVIL PO SCH (08:39)
[2019-04-28] MEDS: ZITHROMAX PO SCH (08:39)
[2019-04-28] MEDS: ASPIRIN EC PO SCH (08:39)
[2019-04-28] MEDS: LOPRESSOR PO SCH (08:39)
[2019-04-28] MEDS: DULCOLAX PR SCH ×2 (08:40→21:26)
--- NOTE | 2019-04-28 13:23 | PROGRESS NOTE ---
DATE: 04/28/2019 INTERVAL HISTORY: No acute events overnight. He was initially sitting at the bedside commode, and later on I found him in bed. His is at bedside. Mr. Ca denies any chest pain, shortness of breath, or cough. He has been eating better, and he has had a bowel movement. OBJECTIVE: Vital Signs: Temperature 98.1 degrees, pulse 74, respiratory rate 24, blood pressure 111/72, saturating 98% on high-flow nasal cannula. His FiO2 has been decreased to 40%. Input and output suggest 25% of his meals, and had a bowel movement. HEENT: Oral cavity is moist. Lungs: Air entry bilaterally equal. No wheeze or rhonchi. Inspiratory crackles in bilateral infrascapular region. Cardiovascular: S1, S2 normal. No murmur, rub, or gallop. Abdomen: Soft. Active bowel sounds. Nontender. Extremities: No lower extremity edema. Neurologic: He is alert and oriented x3. He has hearing impairment. LABORATORY DATA: WBC of 7000, hemoglobin 11.8, platelets 315,000. He does have a PO2 of 170 on 50% high-flow nasal cannula. His BUN is 8, creatinine 0.9. MICROBIOLOGY: No positive data. IMAGING: No new imaging. ASSESSMENT AND PLAN: 1. Acute hypoxic respiratory failure due to bilateral lung pneumonia in the lower lobes. Continue intravenous Zosyn, azithromycin, and oxygenation through high-flow nasal cannula, and titrate it down as necessary. I had a discussion with respiratory therapist about decreasing FiO2 as tolerated. Appreciate Pulmonology recommendation about repeat CT scan or bronchoscopy in the future. 2. History of coronary artery disease, status post stent in 2016. Continue home aspirin, statin, metoprolol, lisinopril, and hold Plavix. 3. History of traumatic brain injury leading to encephalomalacia seen on CT scan, which is currently stable. Sepsis on presentation is also currently resolved. His transaminitis and electrolyte abnormalities have been improving. 4. Disposition. Continue to monitor the patient in PVC because of need for high-flow nasal cannula. Plan of care discussed with the patient and his at bedside. Their questions have been answered. cc: Jeremi Manning MD
[2019-04-28] MEDS: LOVENOX SUBQ SCH (16:26)
--- NOTE | 2019-04-28 18:44 | PULMONOLOGY PROGRESS NOTE ---
DATE: 04/28/2019 SUBJECTIVE: The patient is awake, alert, and conversant. He denies shortness of breath. OBJECTIVE: Vital Signs: Oxygen saturation is 97% on 40% FiO2. HEENT: Pupils are equal and reactive. Oropharynx appears clear. Neck: Supple. Chest: Chest reveals crackles bilaterally. Cardiac Exam: S1, S2. Abdomen: Soft and without hepatosplenomegaly. Extremities: Without edema. LABORATORIES: White blood count 7.48, hemoglobin 11.8, platelet count 315,000. Arterial blood gas reveals a pH 7.51, pCO2 of 26, and PO2 of 170. IMPRESSION: A 64-year-old with 1. Bilateral community-acquired pneumonia. 2. Acute hypoxemic respiratory failure. 3. Remote history of brain injury. PLAN: 1. Follow up chest x-ray tomorrow. We will consider CT scan pending results of chest x-ray report. 2. Continue oxygen for hypoxemic respiratory failure. 3. Additional recommendations pending clinical course. cc: Nathaniel Roldan MD
[2019-04-28] MEDS: LIPITOR PO SCH ×2 (19:41→21:26)
[2019-04-29] MEDS: ZOSYN 3.375 GM in NS 50 ML IV SCH ×4 (03:35→20:34)
[2019-04-29 07:24] LABS: AGAP 12; BUN 8 mg/dL (8-22); CALCIUM 8.5 mg/dL (8.8-10.2); CHLORIDE 101 mmol/L (98-107); COSMO 272; CREATININE 0.9 mg/dL (0.7-1.2); ESTIMATED GFR > 60; GLUCOSE 100 mg/dL (70-104); POTASSIUM 4.3 mmol/L (3.5-5.1); SODIUM 137 mmol/L (136-145); TCO2 24 mmol/L (25-35)
--- NOTE | 2019-04-29 08:02 | Diag Imaging Result Doc PS360 ---
EXAM: CHEST-2 VIEWS HISTORY: resp failure TECHNIQUE: Two views COMPARISON: 04/27/2019 FINDINGS: The lungs are well expanded. There are increased interstitial markings in the mid and lower lungs. These markings are similar to the prior exam in the mid lungs but may be slightly less prominent in the lung bases. No cardiomegaly. No pulmonary edema. No pleural effusions identified. IMPRESSION: Stable to slightly improved bilateral infiltrates Electronically signed by Meek De Los Santos 04/29/2019 7:59 AM
[2019-04-29] MEDS: ZITHROMAX PO SCH (08:09)
[2019-04-29] MEDS: MIRALAX PO SCH ×2 (08:10→20:35)
[2019-04-29] MEDS: PRINIVIL PO SCH (08:10)
[2019-04-29] MEDS: DULCOLAX PR SCH ×2 (08:10→20:35)
[2019-04-29] MEDS: LOPRESSOR PO SCH (08:10)
[2019-04-29] MEDS: ASPIRIN EC PO SCH (08:10)
[2019-04-29] MEDS: LOVENOX SUBQ SCH (15:21)
--- NOTE | 2019-04-29 18:20 | PROGRESS NOTE ---
DATE: 04/29/2019 INTERVAL HISTORY: He was able to be weaned down from high-flow nasal cannula simple nasal cannula. He has had uneventful day so far. His is at bedside. VITALS: Temperature 98.6 degrees, pulse 82, respiratory 15, blood pressure is acceptable, he is saturating 99% on 4 L nasal cannula. PHYSICAL EXAMINATION: Not in acute distress. Oral cavity is moist. Air entry bilaterally equal. No wheeze or rhonchi. He has inspiratory crackles infrascapular region with decreased air entry. S1, S2 normal. No murmur or gallop. Abdomen soft, nontender. Active bowel sounds. No lower extremity edema. He is alert and oriented x3. LABS: Suggestive of no CBC today. BMP suggestive of normal BUN of 8, creatinine of 0.8. No new microbiological data. IMAGING: Chest x-ray suggests stable to slightly improved bilateral infiltrate. ASSESSMENT AND PLAN: 1. Acute hypoxic respiratory failure due to bilateral lung pneumonia multifocal. Continue intravenous Zosyn, azithromycin and oxygenation. His oxygen requirement has significantly decreased from high-flow nasal cannula to simple nasal cannula, pulmonology on board. I will appreciate recommendation regarding future need for repeat CAT scan and bronchoscopy. 2. History of coronary artery disease status post stent in 2016. Continue home aspirin, statin, metoprolol, lisinopril and hold Plavix until further bronchoscopy plan becomes clear . 3. History of traumatic brain injury leading to encephalomalacia seen on CT scan which is currently stable. Sepsis on presentation is currently resolved. Transaminitis, electrolyte abnormalities have been improving. DISPOSITION: Continue monitor patient inside the hospital. I will consider transferring him out of [facility] to routine medical floor as his oxygen requirement has been going down. Plan of care discussed with patient and his at bedside, their questions been answered. cc: Jeremi Manning MD MTDD
[2019-04-29] MEDS: LIPITOR PO SCH (20:35)
[2019-04-30] MEDS: ZOSYN 3.375 GM in NS 50 ML IV SCH ×5 (01:49→20:14)
--- NOTE | 2019-04-30 07:16 | PULMONOLOGY PROGRESS NOTE ---
DATE: 04/29/2019 SUBJECTIVE: The patient is awake and alert. He has minimal sputum production. He is without new complaints. OBJECTIVE: The patient has been afebrile for the last 24 hours. Blood pressure 103/62, heart rate 82, respiratory rate 15, and oxygen saturation 99% on 3 L per nasal cannula.HEENT: Pupils are equal and reactive. Oropharynx appears clear. Neck: Supple. Respirations: Chest reveals crackles bilaterally. Cardiac: S1-S2. Abdomen: Soft. Extremities: Without edema. LABORATORIES: Chest x-ray reveals slight decrease in bilateral mid lung infiltrates. Sodium 137, potassium 4.3, chloride 101, bicarbonate 24, BUN 8, and creatinine 0.9. IMPRESSION: A 64-year-old with: 1. Bilateral community-acquired pneumonia. 2. Acute hypoxemic respiratory failure. 3. Remote history of brain injury. PLAN: 1. Continue current antibiotic regimen. 2. Continue bronchial hygiene. 3. We will perform followup CT scan tomorrow. cc: Nathaniel Roldan MD
[2019-04-30 08:09] LABS: HEMATOCRIT 37.3 % (42.0-52.0); HEMOGLOBIN 11.9 g/dL (14.0-18.0); MCHC 31.9 g/dL (33-37); MPV 10.4 FL (7.4-10.4); RBC 3.97 XMIL (4.7-6.1); RDW 13.6 % (11.5-14.5); WBC 5.07 X1000 (4.8-10.8)
--- NOTE | 2019-04-30 08:13 | Diag Imaging Result Doc PS360 ---
EXAM: CT THORAX W/O CONTRAST 04/30/2019 HISTORY: persistent pneumonia TECHNIQUE: This exam was performed using automated exposure control, adjustment of mA or kV according to patient size, and/or use of iterative reconstruction technique. COMMENT: The current study is compared with the previous examination of 04/24/2019. There are no abnormal fluid collections. There are some partially calcified nodes present in the aorticopulmonary window and calcified nodes are present in the left hilum. There is extensive coronary calcification. The appearance the mediastinum has not changed significantly since the previous study. There are patchy alveolar opacities present bilaterally. This appears somewhat denser peripherally in the upper lobes versus the groundglass opacity which was present at the time the previous study. Some of the differences, however, may be due to differences in inspiration. There is slightly denser consolidation of the right lower lobe posteriorly with air bronchograms compared to the previous study. IMPRESSION: Generally worsened consolidation particularly in the right lower lobe. Electronically signed by Gordy Mcallister 04/30/2019 8:11 AM
[2019-04-30 08:17] LABS: AGAP 11; BUN 8 mg/dL (8-22); CALCIUM 8.9 mg/dL (8.8-10.2); CHLORIDE 103 mmol/L (98-107); COSMO 278; CREATININE 0.9 mg/dL (0.7-1.2); ESTIMATED GFR > 60; GLUCOSE 97 mg/dL (70-104); POTASSIUM 4.7 mmol/L (3.5-5.1); SODIUM 140 mmol/L (136-145); TCO2 26 mmol/L (25-35)
[2019-04-30] MEDS: ZITHROMAX PO SCH (09:20)
[2019-04-30] MEDS: MIRALAX PO SCH ×2 (09:20→20:14)
[2019-04-30] MEDS: LOPRESSOR PO SCH (09:21)
[2019-04-30] MEDS: ASPIRIN EC PO SCH (09:21)
[2019-04-30] MEDS: PRINIVIL PO SCH (09:21)
[2019-04-30] MEDS: DULCOLAX PR SCH ×2 (09:21→20:15)
[2019-04-30] MEDS: LOVENOX SUBQ SCH (16:31)
--- NOTE | 2019-04-30 19:46 | PROVIDER PROGRESS NOTE ---
Progress Note Dr. Neri Progress Note/Pulmonary and or critical care Subjective: The patient is lying in bed on NC at 3L with no acute distress noted. He is asleep, but arousable. He states he is feeling better. He has been feeding himself. He had BM this morning. He walked to the bathroom back and forth with no shortness of breath. He still has occasional cough with saliva type phlegm. Patients at the bedside. Objective: Vital Signs: T 98.2, TX 84, RR 20, BP 104/59 and SaO2 98% on NC at 3L. Physical Examination: General: Lying in bed with no acute distress noted. HEENT: Normocephalic. Trachea midline. Mucosa pink and moist Chest: Even and unlabored. Symmetrical excursion. Auscultation reveals inspiratory crackles bibasilarly. CVS: Regular rate and rhythm with S1 and S2 appreciated. Abdomen: Soft. Nontender. Nondistended. Bowel sounds present in all 4 quadrants noted. Extremities: No pedal edema. Neuro: A/Ox3. Speech fluent. Follow commands. Difficulty hearing noted. Labs and Radiology: Laboratory Results 04/30/19 04/30/19 07:13 07:13 WBC 5.07 RBC 3.97 L Hgb 11.9 L Hct 37.3 L MCV 94.0 MCH 30.0 MCHC 31.9 L RDW Std Deviation 13.6 Plt Count 331 MPV 10.4 Sodium 140 Potassium 4.7 Chloride 103 Carbon Dioxide 26 Anion Gap 11 BUN 8 Creatinine 0.9 Estimated GFR/1.73 m2 > 60 BUN/Creatinine Ratio 9 Glucose 97 Calculated Osmolality 278 Calcium 8.9 Assessment: Acute hypoxemic respiratory failure. Bilateral community-acquired pneumonia. CT thorax w/o contrast this morning showed generally worsened consolidation particularly in the right lower lobe. Remote history of brain injury leading to encephalomalacia seen on CT scan. Currently stable. Plan: Continue current treatment and supportive care per admitting and other teams on the case. Supplemental oxygen. We will titrate oxygen to patients needs per clinical protocol. Antibiotics, including Azithromycin and Zosyn. Bronchodilators. Appropriate DVT and GI prophylaxis. Will follow up imaging to resolution. The CT findings maybe lagging behind the clinical improvement. Physical therapy and incentive spirometer.
[2019-04-30] MEDS: LIPITOR PO SCH (20:14)
--- NOTE | 2019-04-30 21:01 | PROGRESS NOTE ---
DATE: 04/30/2019 SUBJECTIVE: The patient is resting comfortably in bed. He has no complaints at this time. He states that he is starting to feel much better. OBJECTIVE: Vital Signs: Temperature 97 degrees, blood pressure 113/69, heart rate 97, respirations 19, O2 saturation 96% on 3.5 L nasal cannula. General: This is a chronically ill- appearing elderly male lying in bed in no acute distress. Heart: S1, S2 normal. Regular rate and rhythm. Lungs: Equal air entry bilaterally. No wheezing. No rales. Abdomen: Positive bowel sounds. Soft, nontender, nondistended. Extremities: No edema. No cyanosis. Neurologic: The patient is alert and oriented x4. LABS: Hemoglobin 11, hematocrit 37, white blood cell count 5, platelets 331,000. Sodium 140, potassium 4.7, chloride 103, CO2 26, BUN 8, creatinine 0.9, glucose 97. ASSESSMENT AND PLAN: 1. Acute hypoxemic respiratory failure. Likely secondary to pneumonia. 2. Pneumonia. Continue with the current treatment regimen. Pulmonary is following. The patient appears to be improving. 3. Coronary artery disease, status post stent. Continue on the current cardiac medications. 4. History of traumatic brain injury with encephalomalacia. Aware. 5. Anemia. Stable. 6. Deep vein thrombosis prophylaxis. Continue on Lovenox. 7. Disposition. Once the patient is medically stable, he will be discharged home. Continue with physical therapy in the meantime. cc: Neelam Amaral MD
[2019-05-01] MEDS: ZOSYN 3.375 GM in NS 50 ML IV SCH ×4 (02:54→20:34)
[2019-05-01 07:05] LABS: HEMATOCRIT 37.5 % (42.0-52.0); MCV 93.8 FL (81-99); MPV 10.3 FL (7.4-10.4); RDW 13.7 % (11.5-14.5); WBC 4.84 X1000 (4.8-10.8)
[2019-05-01 07:45] LABS: AGAP 11; BUN 9 mg/dL (8-22); CALCIUM 8.7 mg/dL (8.8-10.2); CHLORIDE 101 mmol/L (98-107); COSMO 272; CREATININE 1.1 mg/dL (0.7-1.2); ESTIMATED GFR > 60; GLUCOSE 93 mg/dL (70-104); POTASSIUM 4.5 mmol/L (3.5-5.1); SODIUM 137 mmol/L (136-145); TCO2 25 mmol/L (25-35)
[2019-05-01] MEDS: ASPIRIN EC PO SCH (08:59)
[2019-05-01] MEDS: ZITHROMAX PO SCH (09:00)
[2019-05-01] MEDS: LOPRESSOR PO SCH (09:01)
[2019-05-01] MEDS: PRINIVIL PO SCH (09:01)
[2019-05-01] MEDS: DULCOLAX PR SCH ×2 (09:03→20:35)
[2019-05-01] MEDS: MIRALAX PO SCH ×2 (09:03→20:34)
[2019-05-01] MEDS: PLAVIX PO SCH (09:54)
[2019-05-01] MEDS: LOVENOX SUBQ SCH (15:05)
--- NOTE | 2019-05-01 15:05 | PROVIDER PROGRESS NOTE ---
Progress Note Dr. Neri Progress Note/Pulmonary and or critical care Subjective: The patient is lying in bed on NC at 3L with no acute distress noted. He is awake with his and daughter at the bedside. He states he is feeling ok and he is getting stronger. He had a normal Bowel movement this morning. Patients is at the bedside. Objective: Vital Signs: T 98.1, MO 82, RR 16, BP 109/59 and SaO2 95% on NC at 3L. Physical Examination: General: Lying in bed with no acute distress noted. HEENT: Normocephalic. Trachea midline. Mucosa pink and moist Chest: Even and unlabored. Symmetrical excursion. Auscultation reveals diminished breathing sounds bilaterally and inspiratory crackles bibasilarly. CVS: Regular rate and rhythm with S1 and S2 appreciated. Abdomen: Soft. Nontender. Nondistended. Bowel sounds present in all 4 quadrants noted. Extremities: No pedal edema. Neuro: A/Ox3. Speech fluent. Follow commands. Difficulty hearing noted. Labs and Radiology: Laboratory Results 05/01/19 05/01/19 06:30 06:30 WBC 4.84 RBC 4.00 L Hgb 12.0 L Hct 37.5 L MCV 93.8 MCH 30.0 MCHC 32.0 L RDW Std Deviation 13.7 Plt Count 320 MPV 10.3 Sodium 137 Potassium 4.5 Chloride 101 Carbon Dioxide 25 Anion Gap 11 BUN 9 Creatinine 1.1 Estimated GFR/1.73 m2 > 60 BUN/Creatinine Ratio 8 Glucose 93 Calculated Osmolality 272 Calcium 8.7 L Assessment: Acute hypoxemic respiratory failure. Bilateral community-acquired pneumonia. CT thorax w/o contrast on 04/30/19 showed generally worsened consolidation particularly in the right lower lobe. Remote history of brain injury leading to encephalomalacia seen on CT scan. Currently stable. Plan: Continue current treatment and supportive care per admitting and other teams on the case. Supplemental oxygen. We will titrate oxygen to patients needs per clinical protocol. Antibiotics, including Azithromycin and Zosyn. Bronchodilators. Appropriate DVT and GI prophylaxis. Physical therapy and incentive spirometer.
--- NOTE | 2019-05-01 20:06 | PROGRESS NOTE ---
DATE: 05/01/2019 SUBJECTIVE: The patient is sitting up, resting. He states that he feels much better today. No acute events noted overnight. OBJECTIVE: Vital Signs: Temperature 97.6 degrees ,blood pressure 100/65, heart rate 80, respirations 17, O2 saturation 95% on 3.5 L nasal cannula. General: This is a chronically ill- appearing elderly male sitting up in bed in no acute distress. Heart: S1, S2 normal. Regular rate and rhythm. Lungs: Equal air entry bilaterally. No wheezing. No rales. No rhonchi. Abdomen: Positive bowel sounds. Soft, nontender, nondistended. Extremities: No edema. No cyanosis. Neurologic: The patient is alert and oriented x3. LABORATORY DATA: White blood cell count 4, hemoglobin 12, hematocrit 37, platelets 320,000. Sodium 137, potassium 4.5, chloride 101, CO2 25, BUN 9, creatinine 1.1, glucose 93. ASSESSMENT AND PLAN: 1. Acute hypoxemic respiratory failure. Continue to try and wean the patient off of supplemental oxygen. 2. Pneumonia. Slowly improving. Continue with the current antibiotic regimen. 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 3. Coronary artery disease status post stent. Stable. 4. History of traumatic brain injury with in encephalomalacia. Aware. 5. Anemia. Stable. 6. Deep vein thrombosis prophylaxis. Continue on Lovenox. 7. Disposition. Once the patient is medically stable, he will be discharged home. The patient may require home oxygen. cc: Neelam Amaral MD
[2019-05-01] MEDS: LIPITOR PO SCH (20:34)
[2019-05-02] MEDS: ZOSYN 3.375 GM in NS 50 ML IV SCH ×2 (02:21→09:19)
[2019-05-02 09:18] LABS: AGAP 11; BUN 8 mg/dL (8-22); CALCIUM 8.3 mg/dL (8.8-10.2); CHLORIDE 102 mmol/L (98-107); COSMO 273; ESTIMATED GFR > 60; GLUCOSE 88 mg/dL (70-104); POTASSIUM 4.5 mmol/L (3.5-5.1); SODIUM 138 mmol/L (136-145); TCO2 25 mmol/L (25-35)
[2019-05-02] MEDS: ASPIRIN EC PO SCH (09:18)
[2019-05-02] MEDS: PLAVIX PO SCH (09:18)
[2019-05-02] MEDS: ZITHROMAX PO SCH (09:18)
[2019-05-02] MEDS: MIRALAX PO SCH (09:18)
[2019-05-02] MEDS: PRINIVIL PO SCH (09:18)
[2019-05-02] MEDS: LOPRESSOR PO SCH (09:18)
[2019-05-02] MEDS: DULCOLAX PR SCH (09:19)
--- NOTE | 2019-05-02 10:01 | Diag Imaging Result Doc PS360 ---
EXAM: CHEST-1 VIEW INDICATION: SOB TECHNIQUE: One view COMPARISON: 04/29/2019 FINDINGS: Patchy interstitial and airspace infiltrates bilaterally are virtually unchanged as compared to the previous study. No new consolidation is identified. Cardiac silhouette is stable. IMPRESSION: Stable chest. Electronically signed by Kamlesh Mireles 05/02/2019 9:58 AM
[2019-05-02 11:25] VITALS: BP 118/75
--- NOTE | 2019-05-02 16:01 | PROVIDER PROGRESS NOTE ---
Progress Note Dr. Neri Progress Note/Pulmonary and or critical care Subjective: The patient is lying in bed with no acute distress noted. He is awake with his at the bedside. He has been on room air since yesterday and tolerates well. He has no complaint at this time. Objective: Vital Signs: T 97.3, PA 115, RR 19, BP 118/75 and SaO2 90% on room air. Physical Examination: General: Lying in bed with no acute distress noted. HEENT: Normocephalic. Trachea midline. Mucosa pink and moist Chest: Even and unlabored. Symmetrical excursion. Auscultation reveals diminished breathing sounds bilaterally and inspiratory crackles on the left base. CVS: Regular rate and rhythm with S1 and S2 appreciated. Abdomen: Soft. Nontender. Nondistended. Bowel sounds present in all 4 quadrants noted. Extremities: No pedal edema. Neuro: A/Ox3. Speech fluent. Follow commands. Difficulty hearing noted. Labs and Radiology: Laboratory Results 05/02/19 06:50 Sodium 138 Potassium 4.5 Chloride 102 Carbon Dioxide 25 Anion Gap 11 BUN 8 Creatinine 1.0 Estimated GFR/1.73 m2 > 60 BUN/Creatinine Ratio 8 Glucose 88 Calculated Osmolality 273 Calcium 8.3 L Assessment: Acute hypoxemic respiratory failure. Bilateral community-acquired pneumonia. CT thorax w/o contrast on 04/30/19 showed generally worsened consolidation particularly in the right lower lobe. CXR today shows stable patchy interstitial and airspace infiltrates bilaterally. Remote history of brain injury leading to encephalomalacia seen on CT scan. Accident apparently happened over 35 years ago. 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 Currently stable. Plan: Supplemental oxygen. We will titrate oxygen to patients needs per clinical pro tocol. Antibiotics, including Azithromycin and Zosyn. Bronchodilators. Appropriate DVT and GI prophylaxis. Physical therapy and incentive spirometer. We recommend outpatient CT follow up with 1-2 months after discharge. Discharge planning per Dr. Chandler
--- NOTE | 2019-05-03 17:38 | DISCHARGE SUMMARY ---
ADMISSION DATE: 04/24/2019 DISCHARGE DATE: 05/02/2019 PRIMARY CARE PHYSICIAN: The patient does not have a primary care physician. FINAL DISCHARGE DIAGNOSES: 1. Acute hypoxemic respiratory failure. 2. Pneumonia. 3. Coronary artery disease, status post stent. 4. History of traumatic brain injury with encephalomalacia. 5. Anemia. CONSULTATIONS: 1. Pulmonary consultation with Dr. Neri. HOSPITAL COURSE: Mr. Ca is a 64-year-old male with a history of traumatic brain injury, who presented to the ER with respiratory failure. A chest x-ray was done in the ER that revealed pneumonia. The patient was admitted to the hospitalist service and Pulmonary Medicine was consulted. The patient also had a pulmonary arteriogram done that revealed patchy ground-glass airspace infiltrates consistent with pneumonia. There was no evidence of pulmonary embolism seen. The patient did require high-flow oxygen as well as broad-spectrum antibiotics. The blood cultures remain negative after 5 days of therapy. Also, the patient was noted to be influenza negative. Slowly over the course of the hospitalization with antibiotics, the patient's respiratory status improved. He was able to be weaned to nasal to nasal cannula and eventually he was weaned off of nasal cannula. The chest x-ray following treatment revealed no change, but clinically the patient was improved. On the day of discharge the patient was noted to have an O2 saturation of 95% on room air and was able to ambulate without feeling short of breath. DISCHARGE MEDICATIONS: 1. Augmentin 875/125 one tab oral twice a day x5 days. 2. Lactobacillus 1 tab oral daily. 3. Aspirin 81 mg p.o. daily. 4. Lipitor 40 mg p.o. at bedtime. 5. Plavix 75 mg oral daily. 6. Lisinopril 10 mg oral daily. 7. Nitroglycerin 0.4 mg sublingual every 5 minutes p.r.n. for chest pain. 8. Lopressor 12.5 mg oral daily. DISCHARGE DIET: Low-sodium diet. ACTIVITY: As tolerated. FOLLOWUP INSTRUCTIONS: The patient will need to follow up with Dr. Neri in 2 weeks for repeat chest x-ray. cc: Neelam Amaral MD
== END 2019-05-02 14:30 | disposition home or self-care (01) | DRG 871 ==
LOC: ED 19:25 → EDIPHOLD 04-24 05:49 → SUATTDRO 04-24 05:49 → EDIPHOLD 04-24 09:30 → 2N 04-24 15:16 → 4N 04-29 18:26
PROVIDERS: ATTEND Internal Medicine